=== PATIENT | male | born 1970 | race Caucasian/White ===

== ENCOUNTER 2016-06-09 15:39 | Emergency (ER) | payer OTHER ==
[2016-06-09 15:47] VITALS: BP 147/87; PULSE 87; TEMP 98; BMI 26.9
--- NOTE | 2016-06-09 17:02 | PDOC ---
History of Present Illness - General Chief Complaint: Cold Symptoms Stated Complaint: FEVER, HEADACHE Time Seen by Provider: 06/09/16 16:17 - History of Present Illness Initial Comments: 06/09/16 16:51 CHIEF COMPLAINT: ear pain, fever HISTORY OF PRESENT ILLNESS: 45 yo M with no PMH presents to [facility] with ear pain and subjective fever x 1 week. 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 He also complains of chills No recent travel or sick contacts. PAST MEDICAL HISTORY: Denies past medical history FAMILY HISTORY: Denies SOCIAL HISTORY:Denies tobacco, alcohol, illicit drug use. SURGICAL HISTORY: Denies ALLERGIES: No known drug allergies REVIEW OF SYSTEMS General/Constitutional: Denies fever or chills. Denies weakness, weight change. HEENT: Denies change in vision. Denies ear pain or discharge. Denies sore throat. Cardiovascular: Denies chest pain or shortness of breath. Respiratory: Denies cough, wheezing, or hemoptysis. Gastrointestinal: Denies nausea, vomiting, diarrhea or constipation. Denies rectal bleeding. Genitourinary: Denies dysuria, frequency, or change in urination. Musculoskeletal: Denies joint or muscle swelling or pain. Denies neck or back pain. Skin and breasts: Denies rash or easy bruising. PHYSICAL EXAM General Appearance: Well-appearing, appropriately dressed. No apparent distress , no intoxication. HEENT: EOMI, PERRLA, normal ENT inspection, normal voice, TMs normal, pharynx normal. No conjunctival pallor. No photophobia, scleral icterus. Neck: Supple. Trachea midline. No tenderness, rigidity, carotid bruit, stridor , lymphadenopathy, or thyromegaly. Respiratory/Chest: Lungs CTAB. No shortness of breath, chest tenderness, respiratory distress, accessory muscle use. No crackles, rales, rhonchi, stridor , wheezing, dullness Cardiovascular: RRR. S1, S2. Gastrointestinal/Abdominal: Normal bowel sounds. Abdomen soft, non-distended. No tenderness or rebound tenderness. No organomegaly, pulsatile mass, guarding , hernia, hepatomegaly, splenomegaly. Musculoskeletal/Extremities: Normal inspection. FROM of all extremities, normal capillary refill. Pelvis Stable. No CVA tenderness. No tenderness to extremities, pedal edema, swelling, erythema or deformity. Integumentary: Appropriate color, dry, warm. No cyanosis, erythema, jaundice or rash Neurologic: biometrics head II-XII intact. Fully oriented, alert. Appropriate mood/affect. Motor strength 5/5. No appreciable EOM palsy, facial droop or sensory deficit. Past History - Past Medical History Allergies/Adverse Reactions: Allergies Allergy/AdvReac Type Severity Reaction Status Date / Time No Known Allergies Allergy Verified 06/09/16 15:47 Home Medications: Ambulatory Orders Ciprofloxacin HCl/Dexameth [Ciprodex Otic Suspension] 4 drop AD BID #1 bottle Other medical history: NONE - Psycho/Social/Smoking Cessation Hx Anxiety: No Suicidal Ideation: No Smoking History: Never smoked Hx Alcohol Use: No Drug/Substance Use Hx: No Substance Use Type: None *Physical Exam - Vital Signs Last Vital Signs Temp Pulse Resp BP Pulse Ox 98.0 F 87 20 147/87 96 06/09/16 15:40 06/09/16 15:40 06/09/16 15:40 06/09/16 15:40 06/09/16 15:40 *DC/Admit/Observation/Transfer Diagnosis at time of Disposition: Otitis externa Qualifiers: Otitis externa type: swimmer's ear Laterality: right Chronicity: acute Qualified Code(s): H60.331 - Swimmer's ear, right ear - Discharge Dispostion Disposition: HOME Condition at time of disposition: Stable Admit: No - Prescriptions Prescriptions: Ciprofloxacin HCl/Dexameth [Ciprodex Otic Suspension] 4 drop AD BID #1 bottle - Referrals Referrals: Mandeep Donovan MD [Staff Physician] - - Patient Instructions Additional Instructions: As discussed, please use ear drops as directed and follow up with ENT if symptoms persist. If you experience any fever that does not go away with Motrin , nausea, vomiting, diarrhea, pain behind your ear or to your jaw, or any new or worsening symptoms, please return to the ER. Mandan se discuti, use gotas para los odos segn las indicaciones y realice el seguimiento con ORL si los sntomas persisten. Si experimenta alguna fiebre que no desaparezca con Motrin, nuseas, vmitos, diarrea, dolor detrs de la oreja o la mandbula, o cualquier nuevo o empeoramiento de los sntomas, por favor regrese a la hanh de emergencias. Print Language: [email or web address]
== END 2016-06-09 17:07 | disposition home or self-care (01) ==
LOC: JERFT 15:39
DX: H60.331 Swimmer's ear, right ear (principal)
CPT/HCPCS: 99281-25